=== PATIENT | female | born 1985 | race Caucasian/White ===

== ENCOUNTER → 2017-03-15 | Outpatient (CLI) | payer MEDICARE, OTHER ==
--- NOTE | 2017-03-15 13:53 | US ---
EXAMINATION TYPE: US venous doppler duplex UE LT DATE OF EXAM: 03/15/2017 1:33 PM COMPARISON: NONE CLINICAL HISTORY: R22.32 Swelling Lt Upper Limb. Redness, lump left lower arm SIDE PERFORMED: left Left Arm: NO evidence of DVT IMPRESSION: No left upper extremity evidence of deep venous thrombosis. 2. No abnormality over the area of redness
== END | disposition home or self-care (01) ==
LOC: RADUSWWP 12:38
PROVIDERS: ATTEND Internal Medicine
DX: R22.32 Localized swelling, mass and lump, left upper limb (principal)

== ENCOUNTER 2017-08-05 22:42 | Emergency (ER) | payer MEDICARE, OTHER ==
[2017-08-05 23:34] LABS: Appearance,Urine Clear (Clear); Bilirubin,Urine Negative (Negative); Glucose,Urine (UA) Negative (Negative); Ketones,Urine Negative (Negative); Leukocyte Esterase,Urine Negative (Negative); Nitrite,Urine Negative (Negative); Protein,Urine Negative (Negative); Specific Gravity,Urine 1.001 (1.001-1.035); UA Billing (MACRO vs. MICRO) CHEM; Urobilinogen,Urine <2.0 mg/dL (<2.0)
--- NOTE | 2017-08-05 23:34 | ED ---
Abdominal Pain HPI - General Chief Complaint: Abdominal Pain Stated Complaint: Female Time Seen by Provider: 08/05/17 23:07 Source: patient Mode of arrival: ambulatory Limitations: no limitations - History of Present Illness Initial Comments: Patient is a 32-year-old female who presents with chief complaint of lower abdominal/pelvic pain. Patient states this has been going on on and off for 1 week's time. Patient states that she had intense sharp pain today. Patient states that she has not had similar pain in the past. She does admit to a history of ovarian cysts. Patient cannot identify any aggravating or alleviating factors. Timing is constant. Patient denies vaginal discharge or bleeding. She states that she has not had any blood per rectum, and also notes that her bowel movements have been normal. She denies any fevers or chills. - Related Data Home Medications Medication Instructions Recorded Confirmed Pyridostigmine Kermit [Mestinon] 90 mg PO Q4HR 04/03/14 08/05/17 Phentermine HCl [Adipex-P] 37.5 mg PO QAM 08/05/17 08/05/17 Previous Rx's Medication Instructions Recorded Ibuprofen [Motrin] 800 mg PO QID #20 tab 08/06/17 Allergies Allergy/AdvReac Type Severity Reaction Status Date / Time immune globulin,gamma (IgG) Allergy Severe Anaphylaxis Verified 08/05/17 23:21 human [From Privigen] silver AdvReac Itching Verified 08/05/17 23:21 [From Tegaderm AG Mesh] Review of Systems ROS Statement: Those systems with pertinent positive or pertinent negative responses have been documented in the HPI. ROS Other: All systems not noted in ROS Statement are negative. Constitutional: Denies: fever, chills Eyes: Denies: vision change ENT: Denies: ear pain, throat pain Respiratory: Denies: cough, dyspnea Cardiovascular: Denies: chest pain Endocrine: Denies: fatigue Gastrointestinal: Reports: abdominal pain. Denies: nausea, vomiting Genitourinary: Denies: dysuria Skin: Denies: rash Neurological: Denies: headache Past Medical History Additional Past Medical History / Comment(s): MYASTENIA GRAVIS . ON VENTILATOR FOR SIDE EFFECTS OF MG. History of Any Multi-Drug Resistant Organisms: None Reported Past Surgical History: Adenoidectomy, Tonsillectomy Additional Past Surgical History / Comment(s): THYMUS GLAND REMOVED. SPLENECTOMY. D&C 2014 for miscarriage Past Anesthesia/Blood Transfusion Reactions: No Reported Reaction Past Psychological History: No Psychological Hx Reported Smoking Status: Current every day smoker Past Alcohol Use History: Rare Past Drug Use History: None Reported General Exam Limitations: no limitations General appearance: alert, in no apparent distress Head exam: Present: atraumatic, normocephalic Eye exam: Present: normal appearance ENT exam: Present: normal exam Neck exam: Present: normal inspection Respiratory exam: Present: normal lung sounds bilaterally. Absent: respiratory distress Cardiovascular Exam: Present: regular rate, normal rhythm, normal heart sounds GI/Abdominal exam: Present: soft, tenderness (Patient has tenderness in the left pelvic region and suprapubically.). Absent: distended Rectal exam: Present: deferred External exam: Present: normal external exam Speculum exam: Present: other (There is normal mucoid discharge inside of the vaginal vault. There is excoriation around the cervical os, further there is what appear to be cervical cysts at the 2 and 3 o'clock position. Patient was informed of these findings.) Extremities exam: Present: normal inspection Back exam: Present: normal inspection. Absent: CVA tenderness (R), CVA tenderness (L) Neurological exam: Present: alert, oriented X3 Psychiatric exam: Present: normal affect, normal mood Skin exam: Present: warm, dry, intact Course Vital Signs 08/05/17 22:51 Temperature 98.0 F Pulse Rate 89 Respiratory 20 Rate Blood Pressure 89/65 O2 Sat by Pulse 99 Oximetry Medical Decision Making - Medical Decision Making Patient presents with a chief complaint of pelvic pain. Initial examination, vital signs are stable, patient is in no acute distress. At this time history and physical examination are more consistent with ovarian or uterine pathology. We'll send patient for ultrasound of the pelvis with Doppler. We'll send basic labs. Patient was offered a pelvic exam with cultures. She states that she is not concerned for any sexually transmitted infections as she is and only has one partner. I discussed empiric treatment with her, at this time patient declines secondary to the fact that she has a history of myasthenia gravis and she does not know which antibiotic she cannot take. 12:35 AM lab evaluation of this patient is unremarkable. Ultrasound shows a left sided complex cyst on the left adnexa. It appears to be consistent with a hemorrhagic cyst. Patient was informed of her results and provided with a copy of the radiologist's interpretation. She is instructed to get in contact with her [facility] for follow-up. She was advised to have a repeat ultrasound performed in 3 months. At this time, patient is agreeable with the current care plan. All questions were answered. Patient was instructed to follow-up with OB, primary care, or to return to the emergency department if her symptoms worsen or change. She is instructed to take Motrin for pain. - Lab Data Result diagrams: 08/05/17 23:40 08/05/17 23:40 Lab Results 08/05/17 08/05/17 08/05/17 Range/Units 23:00 23:00 23:40 WBC (3.8-10.6) k/uL RBC (3.80-5.40) m/uL Hgb (11.4-16.0) gm/dL Hct (34.0-46.0) % MCV (80.0-100.0) fL MCH (25.0-35.0) pg MCHC (31.0-37.0) g/dL RDW (11.5-15.5) % Plt Count (150-450) k/uL Neutrophils % % Lymphocytes % % Monocytes % % Eosinophils % % Basophils % % Neutrophils # (1.3-7.7) k/uL Lymphocytes # (1.0-4.8) k/uL Monocytes # (0-1.0) k/uL Eosinophils # (0-0.7) k/uL Basophils # (0-0.2) k/uL Sodium 139 (137-145) mmol/L Potassium 4.0 (3.5-5.1) mmol/L Chloride 115 H (98-107) mmol/L Carbon Dioxide 22 (22-30) mmol/L Anion Gap 2 mmol/L BUN 12 (7-17) mg/dL Creatinine 0.70 (0.52-1.04) mg/dL Est GFR (MDRD) Af Amer >60 (>60 ml/min/1.73 sqM) Est GFR (MDRD) Non-Af >60 (>60 ml/min/1.73 sqM) Glucose 85 (74-99) mg/dL Calcium 9.2 (8.4-10.2) mg/dL Urine Color Colorless Urine Appearance Clear (Clear) Urine pH 6.0 (5.0-8.0) Ur Specific Caldwell 1.001 (1.001-1.035) Urine Protein Negative (Negative) Urine Glucose (UA) Negative (Negative) Urine Ketones Negative (Negative) Urine Blood Negative (Negative) Urine Nitrite Negative (Negative) Urine Bilirubin Negative (Negative) Urine Urobilinogen <2.0 (<2.0) mg/dL Ur Leukocyte Esterase Negative (Negative) Urine HCG, Qual Not Detected (Not Detectd) 08/05/17 Range/Units 23:40 WBC 11.5 H (3.8-10.6) k/uL RBC 4.02 (3.80-5.40) m/uL Hgb 12.8 (11.4-16.0) gm/dL Hct 37.1 (34.0-46.0) % MCV 92.2 (80.0-100.0) fL MCH 31.7 (25.0-35.0) pg MCHC 34.4 (31.0-37.0) g/dL RDW 13.9 (11.5-15.5) % Plt Count 273 (150-450) k/uL Neutrophils % 59 % Lymphocytes % 30 % Monocytes % 5 % Eosinophils % 2 % Basophils % 1 % Neutrophils # 6.8 (1.3-7.7) k/uL Lymphocytes # 3.5 (1.0-4.8) k/uL Monocytes # 0.6 (0-1.0) k/uL Eosinophils # 0.3 (0-0.7) k/uL Basophils # 0.1 (0-0.2) k/uL Sodium (137-145) mmol/L Potassium (3.5-5.1) mmol/L Chloride (98-107) mmol/L Carbon Dioxide (22-30) mmol/L Anion Gap mmol/L BUN (7-17) mg/dL Creatinine (0.52-1.04) mg/dL Est GFR (MDRD) Af Amer (>60 ml/min/1.73 sqM) Est GFR (MDRD) Non-Af (>60 ml/min/1.73 sqM) Glucose (74-99) mg/dL Calcium (8.4-10.2) mg/dL Urine Color Urine Appearance (Clear) Urine pH (5.0-8.0) Ur Specific Caldwell (1.001-1.035) Urine Protein (Negative) Urine Glucose (UA) (Negative) Urine Ketones (Negative) Urine Blood (Negative) Urine Nitrite (Negative) Urine Bilirubin (Negative) Urine Urobilinogen (<2.0) mg/dL Ur Leukocyte Esterase (Negative) Urine HCG, Qual (Not Detectd) Disposition Clinical Impression: Ovarian cyst, Pelvic pain Disposition: HOME SELF-CARE Condition: Good Instructions: Ovarian Cyst (ED) Prescriptions: Ibuprofen [Motrin] 800 mg PO QID #20 tab Referrals: Betty Martins MD [Primary Care Provider] - 1-2 days
[2017-08-06 00:09] LABS: Basophils # (A) 0.1 k/uL (0-0.2); Basophils % (A) 1 %; CH 32.7; CHCM 35.7; Eosinophils # (A) 0.3 k/uL (0-0.7); Eosinophils % (A) 2 %; HCT 37.1 % (34.0-46.0); HDW 3.29; HGB 12.8 gm/dL (11.4-16.0); Luc # (Auto) 0.19; Luc % (Auto) 2; Lymphocytes # (A) 3.5 k/uL (1.0-4.8); Lymphocytes % (A) 30 %; MCH 31.7 pg (25.0-35.0); MCHC 34.4 g/dL (31.0-37.0); MCV 92.2 fL (80.0-100.0); Mean Platelet Volume 10.4; Monocytes # (A) 0.6 k/uL (0-1.0); Monocytes % (A) 5 %; Neutrophils # (A) 6.8 k/uL (1.3-7.7); Neutrophils % (A) 59 %; RBC 4.02 m/uL (3.80-5.40); RDW 13.9 % (11.5-15.5); WBC 11.5 k/uL (3.8-10.6); WBC (Perox) 11.55
[2017-08-06 00:23] LABS: Anion Gap 2 mmol/L; Blood Urea Nitrogen 12 mg/dL (7-17); Calcium 9.2 mg/dL (8.4-10.2); Carbon Dioxide 22 mmol/L (22-30); Chloride 115 mmol/L (98-107); Glucose 85 mg/dL (74-99); Non-African American GFR(MDRD) >60 (>60 ml/min/1.73 sqM); Sodium 139 mmol/L (137-145)
--- NOTE | 2017-08-06 00:24 | US ---
EXAM: US Pelvis Complete, Transabdominal US Pelvis, Transvaginal CLINICAL HISTORY: Reason: Pain TECHNIQUE: Real-time transabdominal and transvaginal pelvic ultrasound (complete) with image documentation. Transvaginal imaging was used for better evaluation of the endometrium and adnexa. COMPARISON: No relevant prior studies available. FINDINGS: Uterus/cervix: Anteverted uterus measuring 9.8 x 4.9 x 5.6 cm. Nabothian cysts noted in the cervix. Normal endometrial stripe thickness measuring 1.5 cm. No myometrial mass. Right ovary: 2.3 x 1.8 x 2.1 cm. Unremarkable. No mass. Normal blood flow. Left ovary: 3.9 x 3.3 x 4.6 cm. A 3.9 cm septated cyst is seen in the left ovary. No internal vascularity. Normal blood flow. Free fluid: Trace fluid in the cul-de-sac. Bladder: Unremarkable as visualized. Wall is normal thickness for degree of distention. IMPRESSION: No evidence of ovarian torsion. Complex cyst in the left ovary measuring 3.9 cm, likely hemorrhagic. RECOMMENDATIONS: Follow-up imaging in 3 cycles if clinically warranted.
[2017-08-06 01:02] VITALS: BP 94/53; PULSE 70; RESP 16; TEMP 97.9
== END 2017-08-06 01:00 | disposition home or self-care (01) ==
LOC: EC 22:42
DX: N83.202 Unspecified ovarian cyst, left side (principal); G70.00 Myasthenia gravis without (acute) exacerbation; F17.200 Nicotine dependence, unspecified, uncomplicated; Z88.7 Allergy status to serum and vaccine; Z91.048 Other nonmedicinal substance allergy status; R10.2 Pelvic and perineal pain
CPT/HCPCS: 36415; 76830; 80048; 81003; 81025; 85025; 87070; 87205; 87491; 87591; 87808; 93975; 96365; 96366; 99284

== ENCOUNTER → 2020-11-19 | Outpatient (CLI) | payer MEDICARE, OTHER ==
--- NOTE | 2020-11-19 10:47 | CT ---
EXAMINATION TYPE: CT neck chest w con DATE OF EXAM: 11/19/2020 9:40 AM COMPARISON: None HISTORY: Swelling, Mikal. neck mass CT DLP: 919.5 mGycm Automated exposure control for dose reduction was used. CONTRAST: CT scan of the neck and chest is performed following with IV Contrast, patient injected with 100 mL o f Isovue 300. Axial images are obtained, coronal and sagittal reformatted images are reviewed. FINDINGS: Calcified granuloma present at the right lung apex. No suspicious mass. No supraclavicular or cervical adenopathy. Nonenlarged nodes are present along the cervical chains no metastatic patient 's palpable abnormalities there are overlying BBs at the posterior cervical chains and nonenlarged no wilder are present bilaterally. The skull base is normal. Airway: No gross abnormality seen. No pleural or pericardial effusion. Parotid/submandibular glands: No gross abnormality seen. Carotid/Vascular Structures: Patent. 3 super aortic branch vessels are present. Vertebral arteries ar e codominant. Osseous Structures: Within normal limits, there is some thoracic spondylosis present. No lytic or dhaval stic lesion. Other: No mediastinal, axillary, or hilar adenopathy. Upper abdomen is unremarkable. IMPRESSION: Nonenlarged and symmetric lymph nodes correspond to patient's palpable abnormalities as described.
== END | disposition home or self-care (01) ==
LOC: RADCTMAIN 08:52
PROVIDERS: ATTEND Internal Medicine
DX: R22.2 Localized swelling, mass and lump, trunk (principal); R22.1 Localized swelling, mass and lump, neck
CPT/HCPCS: 70491; 71260; Q9967

== ENCOUNTER → 2024-04-05 | Outpatient (CLI) | payer MEDICARE, OTHER ==
[2024-04-05 16:17] LABS: Basophils # (A) 0.07 X 10*3/uL (0.00-0.10); Basophils % (A) 0.8 %; Eosinophils # (A) 0.25 X 10*3/uL (0.04-0.35); Eosinophils % (A) 2.8 %; HCT 40.2 % (37.2-46.3); HGB 13.1 g/dL (12.0-15.0); MCH 31.3 pg (27.0-32.0); MCHC 32.6 g/dL (32.0-37.0); MCV 95.9 FL (80.0-97.0); Mean Platelet Volume 13.3 FL (9.5-12.2); Monocytes # (A) 0.91 X 10*3/uL (0.20-1.00); NRBC Per 100 WBC 0 X 10*3/uL (0.00-0.01); Neutrophils # (A) 4.91 X 10*3/uL (1.80-7.70); Neutrophils % (A) 54.2 %; Platelet Count 317 X 10*3/uL (140-440); RBC 4.19 X 10*6/uL (4.10-5.20); RDW 14.8 % (11.5-14.5); WBC 9.06 X 10*3/uL (4.50-10.00)
[2024-04-05 16:21] LABS: ALT 20 U/L (8-44); AST 28 U/L (13-35); Albumin 4.3 g/dL (3.8-4.9); Albumin/Globulin Ratio 1.23 Ratio (1.60-3.17); Alkaline Phosphatase 52 U/L (41-126); BUN/Creat Ratio 16.57 Ratio (12.00-20.00); Blood Urea Nitrogen 11.6 mg/dL (9.0-27.0); Calcium 9.9 mg/dL (8.7-10.3); Carbon Dioxide 20.8 mmol/L (21.6-31.8); Chloride 106 mmol/L (96-109); Globulin 3.5 g/dL (1.6-3.3); Glucose 86 mg/dL (70-110); Potassium 4.6 mmol/L (3.5-5.5); Sodium 137 mmol/L (135-145); Total Bilirubin 0.6 mg/dL (0.3-1.2); Total Protein 7.8 g/dL (6.2-8.2)
== END | disposition home or self-care (01) ==
LOC: LABWHC1 09:31
PROVIDERS: ATTEND Student in an Organized Health Care Education/Training Program
DX: G70.00 Myasthenia gravis without (acute) exacerbation (principal)
CPT/HCPCS: 36415; 80053; 85025

== ENCOUNTER → 2024-04-12 | Outpatient (CLI) | payer MEDICARE, OTHER ==
[2024-04-12 14:25] LABS: Basophils # (A) 0.09 X 10*3/uL (0.00-0.10); Basophils % (A) 1.3 %; Eosinophils # (A) 0.25 X 10*3/uL (0.04-0.35); Eosinophils % (A) 3.7 %; HCT 39.4 % (37.2-46.3); HGB 12.9 g/dL (12.0-15.0); Lymphocytes # (A) 2.26 X 10*3/uL (0.90-5.00); Lymphocytes % (A) 33.3 %; MCHC 32.7 g/dL (32.0-37.0); MCV 94.7 FL (80.0-97.0); Mean Platelet Volume 12.8 FL (9.5-12.2); Monocytes # (A) 0.66 X 10*3/uL (0.20-1.00); Monocytes % (A) 9.7 %; NRBC Per 100 WBC 0 X 10*3/uL (0.00-0.01); Neutrophils % (A) 51.7 %; Platelet Count 295 X 10*3/uL (140-440); RBC 4.16 X 10*6/uL (4.10-5.20); RDW 14.6 % (11.5-14.5); WBC 6.78 X 10*3/uL (4.50-10.00)
[2024-04-12 18:24] LABS: ALT 17 U/L (8-44); AST 29 U/L (13-35); Albumin 4.2 g/dL (3.8-4.9); Albumin/Globulin Ratio 0.93 Ratio (1.60-3.17); Alkaline Phosphatase 52 U/L (41-126); BUN/Creat Ratio 14.57 Ratio (12.00-20.00); Blood Urea Nitrogen 10.2 mg/dL (9.0-27.0); Calcium 9.5 mg/dL (8.7-10.3); Carbon Dioxide 20.4 mmol/L (21.6-31.8); Chloride 105 mmol/L (96-109); Globulin 4.5 g/dL (1.6-3.3); Glucose 85 mg/dL (70-110); Potassium 4.8 mmol/L (3.5-5.5); Sodium 136 mmol/L (135-145); Total Bilirubin 0.9 mg/dL (0.3-1.2); Total Protein 8.7 g/dL (6.2-8.2)
== END | disposition home or self-care (01) ==
LOC: LABWHC1 11:38
PROVIDERS: ATTEND Student in an Organized Health Care Education/Training Program
DX: G70.00 Myasthenia gravis without (acute) exacerbation (principal)
CPT/HCPCS: 36415; 80053; 85025

== ENCOUNTER → 2025-04-02 | Outpatient (CLI) | payer MEDICARE, OTHER ==
--- NOTE | 2025-04-02 08:15 | US ---
EXAMINATION TYPE: US abdomen complete DATE OF EXAM: 04/02/2025 COMPARISON: NONE CLINICAL INDICATION: Female, 39 years old with history of R10.84 GENERALIZED ABDOMINAL PAIN; Hx splee n removed. Pain has resolved. TECHNIQUE: Grayscale and color Doppler imaging of the abdomen was performed. FINDINGS: EXAM MEASUREMENTS: Liver Length: 19.3 cm Gallbladder Wall: 0.25 cm CBD: 0.41 cm, color Doppler imaging was utilized to isolate the common bile duct for measurement. Spleen: *Surgically absent Right Kidney: 11.2 x 6.0 x 4.1 cm Left Kidney: 12.7 x 6.1 x 7.1 cm MARKETING AND OUTREACH COORDINATOR NOTES: Exam is limited due to gas Pancreas: Not well seen. Liver: Appears very coarse/heterogeneous. *Enlarged. Gallbladder: Appears anechoic Evidence for sonographic Licea's sign: No CBD: Appears wnl Spleen: *Removed per pt Right Kidney: *Anechoic area seen upper/lateral: 2.3 x 2.3 x 2.1 cm. Left Kidney: Very limited due to gas. No abnormality seen given limitations. Measures upper limits- slightly enlarged? Upper IVC: Appears wnl Abd Aorta: Appears wnl Pancreas is obscured by overlying bowel gas. The liver is mildly enlarged with coarse and heterogenou s echotexture. No surface nodularity or focal lesion identified. No gallstones, wall thickening or alanis rrounding fluid. Negative sonographic Licea sign. Common bile duct is within normal limits. Spleen i s surgically absent. The kidneys demonstrate no hydronephrosis, solid mass or shadowing calculus. Sim ple appearing cyst within the right renal upper to the lateral portion measuring up to 2.3 cm. Limite d visualization of the left kidney. The visualized portions of the upper IVC and abdominal aorta are within normal limits. IMPRESSION: 1. No ultrasound evidence for acute process. 2. Mild hepatomegaly with coarsened heterogenous echotexture. No focal lesion. Findings suggest nonsp ecific hepatocellular disease. Correlate with liver function tests. 3. Simple appearing right renal 2.3 cm cyst. 4. Postsplenectomy changes. [facility], , 04/02/2025 8:12 AM
== END | disposition home or self-care (01) ==
LOC: RADUSWWP 07:37
PROVIDERS: ATTEND Internal Medicine
DX: R16.0 Hepatomegaly, not elsewhere classified (principal); K76.89 Other specified diseases of liver; N28.1 Cyst of kidney, acquired; Z90.81 Acquired absence of spleen
CPT/HCPCS: 76700